=== PATIENT | female | born 1985 | race Caucasian/White ===

== ENCOUNTER 2017-11-17 10:30 | Emergency (ER) | payer OTHER ==
[2017-11-17 11:02] VITALS: BP 121/75
[2017-11-17] MEDS ORDERED: Morphine 2 MG/ML Syringe IVPUSH ONE (11:10)
[2017-11-17] MEDS ORDERED: Sodium Chloride 0.9% 10 ML Syringe FLUSH PRN (11:10)
--- NOTE | 2017-11-17 11:26 | EDM.PDOC ---
<Marsha Olvera - Last Filed: 11/17/17 11:10> ED HPI GENERAL MEDICAL PROBLEM - General Chief Complaint: Genitourinary Problem Stated Complaint: [id number] STAGE 2 KIDNEY DISEASE SHARP PAIN Time Seen by Provider: 11/17/17 11:10 Source of Information: Reports: Patient, RN, RN Notes Reviewed History Limitations: Reports: No Limitations - History of Present Illness INITIAL COMMENTS - FREE TEXT/NARRATIVE: Shelia is a 31 yo F who presents to the ED with a three day history of right flank pain. She reports that the pain has been progressively getting worse over the last 2 days. The pain is constant, sharp burning pain. She reports that she has tried ibuprofen and tylenol without relief. Denies abd pain, nausea or vomiting. She denies fever or dysuria. She reports that she has not been able to void the last two days despite drinking water. Location: Reports: Other (Right flank area) Quality: Reports: Ache, Sharp Severity: Severe Improves with: Reports: None Worsens with: Reports: None Associated Symptoms: Reports: Other (Unable to void) Right Flank Pain Score (Numeric/FACES): 10 - Related Data Allergies Allergy/AdvReac Type Severity Reaction Status Date / Time cephalexin [Cephalexin] Allergy Rash Verified 11/17/17 10:53 ibuprofen Allergy Cannot Verified 11/17/17 10:53 Remember Home Meds: Home Meds Acetaminophen [Tylenol] 975 mg PO ASDIRECTED PRN 11/17/17 [History] Losartan Potassium 25 mg PO DAILY 11/17/17 [History] Past Medical History HEENT History: Reports: None Cardiovascular History: Reports: None Respiratory History: Reports: None Gastrointestinal History: Reports: None Genitourinary History: Reports: Other (See Below) Other Genitourinary History: stage 2 kidney disease 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 Neurological History: Reports: None Psychiatric History: Reports: None Endocrine/Metabolic History: Reports: None Hematologic History: Reports: None Immunologic History: Reports: None Oncologic (Cancer) History: Reports: None Other Oncologic History: SLE lupus Dermatologic History: Reports: None - Past Surgical History Female Surgical History: Reports: Breast Reduction, Section Musculoskeletal Surgical History: Reports: Other (See Below) Other Musculoskeletal Surgeries/Procedures:: acl surgury Social & Family History - Tobacco Use Smoking Status *Q: Never Smoker Second Hand Smoke Exposure: No - Caffeine Use Caffeine Use: Reports: None - Alcohol Use Days Per Week of Alcohol Use: 0 - Recreational Drug Use Recreational Drug Use: No ED ROS GENERAL - Review of Systems Review Of Systems: ROS reveals no pertinent complaints other than HPI. ED EXAM, RENAL/ - Physical Exam Exam: See Below Exam Limited By: No Limitations General Appearance: Alert, WD/WN, No Apparent Distress Eye Exam: Bilateral Eye: PERRL Ears: Normal External Exam, Normal Canal, Hearing Grossly Normal, Normal TMs Nose: Normal Inspection, Normal Mucosa, No Blood Throat/Mouth: Normal Inspection, Normal Lips, Normal Teeth, Normal Gums, Normal Oropharynx, Normal Voice, No Airway Compromise Head: Atraumatic, Normocephalic Neck: Normal Inspection, Supple, Non-Tender, Full Range of Motion Respiratory/Chest: No Respiratory Distress, Lungs Clear, Normal Breath Sounds, No Accessory Muscle Use, Chest Non-Tender Cardiovascular: Normal Peripheral Pulses, Regular Rate, Rhythm, No Edema, No Gallop, No JVD, No Murmur, No Rub GI/Abdominal: Normal Bowel Sounds, Soft, Non-Tender, No Organomegaly, No Distention, No Abnormal Bruit, No Mass (Female) Exam: Deferred Rectal (Female) Exam: Deferred Back Exam: Normal Inspection, Full Range of Motion, CVA Tenderness (R) Extremities: Normal Inspection, Normal Range of Motion, Non-Tender, Normal Capillary Refill, No Pedal Edema Neurological: Alert, Oriented, CN II-XII Intact, Normal Cognition, Normal Gait, Normal Reflexes, No Motor/Sensory Deficits Psychiatric: Normal Affect, Normal Mood Skin Exam: Warm, Dry, Intact, Normal Color, No Rash Lymphatic: No Adenopathy Course - Vital Signs Last Recorded V/S: Last Vital Signs Temp 97.4 F 11/17/17 10:48 Pulse 66 11/17/17 11:01 Resp 16 11/17/17 10:48 BP 121/75 11/17/17 11:01 Pulse Ox 100 11/17/17 11:01 - Orders/Labs/Meds Orders: Active Orders 24 hr Category Date Time Status Insert Felder Catheter [Insert Urinary Catheter] [OM.PC] Care 11/17/17 12:15 Ordered Q24H Peripheral IV Care [RC] . DIRECTED Care 11/17/17 11:11 Active Urinary Catheter Assessment [RC] ASDIRECTED Care 11/17/17 12:06 Active Sodium Chloride 0.9% [Saline Flush] Med 11/17/17 11:10 Active 10 ml FLUSH ASDIRECTED PRN Peripheral IV Insertion Adult [OM.PC] Stat Oth 11/17/17 11:10 Ordered Medication Orders Sodium Chloride (Saline Flush) 10 ml FLUSH ASDIRECTED PRN PRN Reason: Keep Vein Open Last Admin: 11/17/17 11:16 Dose: 10 ml Labs: Laboratory Tests 11/17/17 11/17/17 11/17/17 Range/Units 11:20 11:20 14:56 WBC 7.5 (5.0-10.0) 10^3/uL RBC 5.11 (4.2-5.4) 10^6/uL Hgb 14.0 (12.0-16.0) g/dL Hct 41.3 (37.0-47.0) % MCV 80.8 (80-100) fL MCH 27.4 (27.0-34.0) pg MCHC 33.9 (33.0-35.0) g/dL Plt Count 342 (150-450) 10^3/uL Neut % (Auto) 65.7 (42.2-75.2) % Lymph % (Auto) 25.7 (20.5-50.1) % [place] % (Auto) 7.1 (2-8) % Eos % (Auto) 0.8 L (1.0-3.0) % Baso % (Auto) 0.7 (0.0-1.0) % Sodium 137 (135-145) mmol/L Potassium 3.7 (3.6-5.0) mmol/L Chloride 104 (101-111) mmol/L Carbon Dioxide 24.0 (21.0-31.0) mmol/L Anion Gap 12.7 BUN 10 (7-18) mg/dL Creatinine 0.8 (0.6-1.3) mg/dL Est Cr Clr Drug Dosing 87.99 mL/min Estimated GFR (MDRD) > 60 BUN/Creatinine Ratio 12.50 Glucose 92 (74-105) mg/dL Calcium 9.4 (8.4-10.2) mg/dl Total Bilirubin 0.8 (0.2-1.0) mg/dL AST 18 (10-42) IU/L ALT 18 (10-60) IU/L Alkaline Phosphatase 55 (42-121) IU/L B-Natriuretic Peptide < 5 (0-100) pg/ml Total Protein 7.4 (6.7-8.2) g/dl Albumin 4.5 (3.2-5.5) g/dl Globulin 2.9 Albumin/Globulin Ratio 1.55 Urine Color Yellow (YELLOW) Urine Appearance Slightly cloudy (CLEAR) Urine pH 5.5 (5.0-9.0) Ur Specific [place] <= 1.005 (1.005-1.030) Urine Protein 30 H (NEGATIVE) Urine Glucose (UA) Negative (NEGATIVE) Urine Ketones Trace H (NEGATIVE) Urine Occult Blood Trace-lysed H (NEGATIVE) Urine Nitrite Negative (NEGATIVE) Urine Bilirubin Negative (NEGATIVE) Urine Urobilinogen 0.2 (0.2-1.0) mg/dL Ur Leukocyte Esterase Negative (NEGATIVE) Urine RBC 0-5 /HPF Urine WBC 0-5 (0-5/HPF) /HPF Ur Epithelial Cells Few /HPF Urine Bacteria Few (0-FEW/HPF) /HPF Urine Mucus Rare /LPF Urine Opiates Screen (NEGATIVE) Ur Oxycodone Screen (NEGATIVE) Urine Methadone Screen (NEGATIVE) Ur Barbiturates Screen (NEGATIVE) U Tricyclic Antidepress (NEGATIVE) Ur Phencyclidine Scrn (NEGATIVE) Ur Amphetamine Screen (NEGATIVE) U Methamphetamines Scrn (NEGATIVE) Urine MDMA Screen (NEGATIVE) U Benzodiazepines Scrn (NEGATIVE) Urine Cocaine Screen (NEGATIVE) U Marijuana (THC) Screen (NEGATIVE) 11/17/17 Range/Units 14:56 WBC (5.0-10.0) 10^3/uL RBC (4.2-5.4) 10^6/uL Hgb (12.0-16.0) g/dL Hct (37.0-47.0) % MCV (80-100) fL MCH (27.0-34.0) pg MCHC (33.0-35.0) g/dL Plt Count (150-450) 10^3/uL Neut % (Auto) (42.2-75.2) % Lymph % (Auto) (20.5-50.1) % [place] % (Auto) (2-8) % Eos % (Auto) (1.0-3.0) % Baso % (Auto) (0.0-1.0) % Sodium (135-145) mmol/L Potassium (3.6-5.0) mmol/L Chloride (101-111) mmol/L Carbon Dioxide (21.0-31.0) mmol/L Anion Gap BUN (7-18) mg/dL Creatinine (0.6-1.3) mg/dL Est Cr Clr Drug Dosing mL/min Estimated GFR (MDRD) BUN/Creatinine Ratio Glucose (74-105) mg/dL Calcium (8.4-10.2) mg/dl Total Bilirubin (0.2-1.0) mg/dL AST (10-42) IU/L ALT (10-60) IU/L Alkaline Phosphatase (42-121) IU/L B-Natriuretic Peptide (0-100) pg/ml Total Protein (6.7-8.2) g/dl Albumin (3.2-5.5) g/dl Globulin Albumin/Globulin Ratio Urine Color (YELLOW) Urine Appearance (CLEAR) Urine pH (5.0-9.0) Ur Specific [place] (1.005-1.030) Urine Protein (NEGATIVE) Urine Glucose (UA) (NEGATIVE) Urine Ketones (NEGATIVE) Urine Occult Blood (NEGATIVE) Urine Nitrite (NEGATIVE) Urine Bilirubin (NEGATIVE) Urine Urobilinogen (0.2-1.0) mg/dL Ur Leukocyte Esterase (NEGATIVE) Urine RBC /HPF Urine WBC (0-5/HPF) /HPF Ur Epithelial Cells /HPF Urine Bacteria (0-FEW/HPF) /HPF Urine Mucus /LPF Urine Opiates Screen Positive H (NEGATIVE) Ur Oxycodone Screen Negative (NEGATIVE) Urine Methadone Screen Negative (NEGATIVE) Ur Barbiturates Screen Negative (NEGATIVE) U Tricyclic Antidepress Negative (NEGATIVE) Ur Phencyclidine Scrn Negative (NEGATIVE) Ur Amphetamine Screen Negative (NEGATIVE) U Methamphetamines Scrn Negative (NEGATIVE) Urine MDMA Screen Negative (NEGATIVE) U Benzodiazepines Scrn Negative (NEGATIVE) Urine Cocaine Screen Negative (NEGATIVE) U Marijuana (THC) Screen Negative (NEGATIVE) Meds: Medications Generic Name Dose Route Start Last Admin Trade Name Freq PRN Reason Stop Dose Admin Sodium Chloride 10 ml 11/17/17 11:10 11/17/17 11:16 Saline Flush FLUSH 10 ml ASDIRECTED PRN Administration Keep Vein Open Discontinued Medications Generic Name Dose Route Start Last Admin Trade Name Mark PRN Reason Stop Dose Admin Hydromorphone HCl 0.5 mg 11/17/17 13:33 11/17/17 13:53 Dilaudid IVPUSH 11/17/17 13:34 0.5 mg ONETIME ONE Administration Hydromorphone HCl 0.5 mg 11/17/17 13:44 11/17/17 14:37 Dilaudid IVPUSH 11/17/17 13:45 Not Given ONETIME ONE Sodium Chloride 1,000 mls @ 999 mls/hr 11/17/17 13:34 11/17/17 13:52 Normal Saline IV 11/17/17 14:34 999 mls/hr .BOLUS ONE Administration Sodium Chloride 1,000 mls @ 999 mls/hr 11/17/17 13:43 11/17/17 14:37 Normal Saline IV 11/17/17 14:43 Not Given .BOLUS ONE Iopamidol 75 ml 11/17/17 12:32 11/17/17 12:50 Isovue-300 (61%) IVPUSH 11/17/17 12:33 75 ml ONETIME ONE Administration Morphine Sulfate 2 mg 11/17/17 11:10 11/17/17 11:15 Morphine IVPUSH 11/17/17 11:11 2 mg ONETIME ONE Administration Departure - Departure Disposition: Home, Self-Care 01 Clinical Impression: Right flank pain, Kidney stone - Discharge Information Instructions: Renal Colic, [id number], Flank Pain, [id number], Kidney Stones, [id number] Forms: ED Department Discharge Additional Instructions: RX: Tramadol/Acetaminophen Drink plenty of water Follow up with your primary care facility - My Orders Last 24 Hours: My Active Orders 11/17/17 11:10 Sodium Chloride 0.9% [Saline Flush] 10 ml FLUSH ASDIRECTED PRN Peripheral IV Insertion Adult [OM.PC] Stat 11/17/17 11:11 Peripheral IV Care [RC] . DIRECTED 11/17/17 12:06 Urinary Catheter Assessment [RC] ASDIRECTED 11/17/17 12:15 Insert Felder Catheter [Insert Urinary Catheter] [OM.PC] Q24H - Assessment/Plan Last 24 Hours: My Active Orders 11/17/17 11:10 Sodium Chloride 0.9% [Saline Flush] 10 ml FLUSH ASDIRECTED PRN Peripheral IV Insertion Adult [OM.PC] Stat 11/17/17 11:11 Peripheral IV Care [RC] . DIRECTED 11/17/17 12:06 Urinary Catheter Assessment [RC] ASDIRECTED 11/17/17 12:15 Insert Felder Catheter [Insert Urinary Catheter] [OM.PC] Q24H <Amie Kapoor - Last Filed: 11/17/17 16:04> Course - Radiology Interpretation Free Text/Narrative:: CT Abdomen/Pelvis with Contrast: 1. Solitary tiny calcification mid pole right kidney without signs of obstructive uropathy this or the contralateral left kidney. Symmetrically distended normal appearing urinary bladder. No sign of extravesicular pelvic mass lesions or lymphadenopathy. 2. Gallbladder distended right upper quadrant. No gallstones. Liver, stomach, spleen, pancreas and adrenal glands negative. Diverticula descending left colon without associated signs of inflammation, i.e. , diverticulosis. See Rad report Departure - Departure Time of Disposition: 16:03 Condition: Fair
[2017-11-17 11:51] LABS: CHLORIDE,CL 104 mmol/L (101-111); SODIUM,NA 137 mmol/L (135-145)
[2017-11-17] MEDS ORDERED: Iopamidol 612 MG/ML 75 ML Bottle IVPUSH ONE (12:32)
[2017-11-17] MEDS ORDERED: HYDROmorphone 0.5 MG/0.5 ML Syringe IVPUSH ONE ×2 (13:33→13:44)
[2017-11-17] MEDS ORDERED: Sodium Chloride 0.9% 1,000 ML IV ONE ×2 (13:34→13:43)
--- NOTE | 2017-11-17 14:20 | CT ---
CLINICAL HISTORY: 31-year-old female who "has not urinated in 2 days" complaining of sharp pain right flank. Previous hysterectomy and right oophorectomy this patient with "stage II" kidney disease. Ser um creatinine 0.8. SCAN TECHNIQUE: Volume acquisition of data from the abdomen and pelvis obtained without oral contrast but during/after the intravenous infusion 75 cc nonionic Isovue contrast (2 cc/sec via injector) whi le the patient was lying supine on the Siemens multislice scanner [place], [place]. All data archived in the PACS system for storage, reformatting and study. INTERPRETATION: Solitary tiny calculus mid pole right kidney (no obstruction). Diverticulosis left co branden. Otherwise Negative exam. 1. Normal reniform size, axis and configuration. No sign of renal cortical cystic or solid mass lesio n. Solitary tiny calcification mid pole right kidney without signs of obstructive uropathy this or th e contralateral left kidney. Symmetrically distended normal appearing urinary bladder. No sign of ext ravesicular pelvic mass lesions or lymphadenopathy. Small midline uterus. 2. Gallbladder distended right upper quadrant. No gallstones. Liver, stomach, spleen, pancreas and ad renal glands negative.. 3. Normal aortoiliac vessels without sign of aneurysm or dissection. Lumbar spine unremarkable. Lung bases are clear. 4. No abdominal mass lesion, retroperitoneal lymphadenopathy, inflammatory "dirty" peritoneal fat, si gns of mechanical bowel obstruction, ascites or free intraperitoneal air. 5. Diverticula descending left colon without associated signs of inflammation, i.e., diverticulosis.
== END 2017-11-17 16:12 | disposition home or self-care (01) ==
LOC: DL.ED 10:30
DX: N20.0 Calculus of kidney (principal); N18.2 Chronic kidney disease, stage 2 (mild); Z88.1 Allergy status to other antibiotic agents; Z88.6 Allergy status to analgesic agent; Z79.899 Other long term (current) drug therapy; Z90.710 Acquired absence of both cervix and uterus
CPT/HCPCS: 36415; 74177; 80053; 80305; 81001; 83880; 85025; 96361; 96374; 96375; 99284; J1170; J2270; J7030; J7050; Q9967

== ENCOUNTER 2018-01-05 21:38 | Emergency (ER) | payer OTHER ==
[2018-01-05] MEDS ORDERED: Ondansetron 4 MG Tab.DIS PO ONE (22:06)
[2018-01-05] MEDS ORDERED: Sodium Chloride 0.9% 1,000 ML IV ONE (22:06)
[2018-01-05 22:46] LABS: ANION GAP 10.8; CHLORIDE,CL 104 mmol/L (101-111); SODIUM,NA 136 mmol/L (135-145)
[2018-01-05] MEDS ORDERED: Morphine 10 MG/ML Syringe IVPUSH ONE (23:35)
[2018-01-05] MEDS ORDERED: HYDROmorphone 0.5 MG/0.5 ML Syringe IVPUSH ONE (23:51)
[2018-01-06 00:04] VITALS: BP 100/87
[2018-01-06] MEDS ORDERED: fentaNYL 100 MCG/2 ML SDV IVPUSH ONE ×2 (00:29→01:01)
[2018-01-06] MEDS ORDERED: Promethazine 25 MG/ML SDV IM ONE (01:01)
[2018-01-06] MEDS ORDERED: Sodium Chloride 0.9% 1,000 ML IV ONE (01:36)
[2018-01-06] MEDS ORDERED: Iopamidol 612 MG/ML 75 ML Bottle IVPUSH ONE (01:43)
[2018-01-06] MEDS ORDERED: Ketorolac 30 MG/ML SDV IM ONE (02:54)
--- NOTE | 2018-01-06 02:58 | EDM.PDOC ---
ED HPI GENERAL MEDICAL PROBLEM - General Chief Complaint: Flank Pain Stated Complaint: [id number] RT KIDNEY PAIN STAGE 2 KIDNEY DISEASE Time Seen by Provider: 01/05/18 21:45 Source of Information: Reports: Patient History Limitations: Reports: No Limitations - History of Present Illness INITIAL COMMENTS - FREE TEXT/NARRATIVE: ED with c/o right flank pain, reports onset around 130 then improved some with tylonol now worse unable to find position of comfort, sharp constant. 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 Right Flank Pain Score (Numeric/FACES): 0 - Related Data Allergies Allergy/AdvReac Type Severity Reaction Status Date / Time cephalexin [Cephalexin] Allergy Rash Verified 01/05/18 21:53 ibuprofen Allergy Cannot Verified 01/05/18 21:53 Remember Home Meds: Home Meds Acetaminophen [Tylenol] 975 mg PO ASDIRECTED PRN 11/17/17 [History] Losartan Potassium 25 mg PO DAILY 11/17/17 [History] Sertraline [Zoloft] 25 mg PO DAILY 01/05/18 [History] Past Medical History HEENT History: Reports: None Cardiovascular History: Reports: None Respiratory History: Reports: None Gastrointestinal History: Reports: None Genitourinary History: Reports: Other (See Below) Other Genitourinary History: stage 2 kidney disease 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 History: Reports: None Psychiatric History: Reports: None Endocrine/Metabolic History: Reports: None Hematologic History: Reports: None Immunologic History: Reports: None Oncologic (Cancer) History: Reports: None Other Oncologic History: SLE lupus Dermatologic History: Reports: None - Past Surgical History Female Surgical History: Reports: Breast Reduction, Section Musculoskeletal Surgical History: Reports: Other (See Below) Other Musculoskeletal Surgeries/Procedures:: acl surgury Social & Family History - Tobacco Use Smoking Status *Q: Never Smoker - Caffeine Use Caffeine Use: Reports: None - Recreational Drug Use Recreational Drug Use: No ED ROS GENERAL - Review of Systems Review Of Systems: ROS reveals no pertinent complaints other than HPI. ED EXAM, GI/ABD - Physical Exam Exam: See Below Exam Limited By: No Limitations General Appearance: Alert, Mild Distress, Obese Eyes: Bilateral: EOMI Ears: Normal External Exam Nose: Normal Inspection Throat/Mouth: Normal Inspection Head: Atraumatic, Normocephalic Neck: Normal Inspection Respiratory/Chest: No Respiratory Distress, Lungs Clear, Normal Breath Sounds Cardiovascular: Normal Peripheral Pulses GI/Abdominal Exam: Normal Bowel Sounds Back Exam: CVA Tenderness (L), CVA Tenderness (R) Extremities: Normal Inspection Neurological: Alert, Oriented, Normal Cognition Psychiatric: Normal Affect, Normal Mood Skin Exam: Warm, Dry, Intact, No Rash Course - Vital Signs Last Recorded V/S: Last Vital Signs Temp 96.7 F 01/06/18 00:01 Pulse 60 01/06/18 00:01 Resp 19 01/06/18 00:01 BP 100/87 01/06/18 00:01 Pulse Ox 100 01/06/18 00:01 - Orders/Labs/Meds Labs: Laboratory Tests 01/05/18 01/05/18 01/05/18 Range/Units 21:42 21:42 22:10 WBC 9.3 (5.0-10.0) 10^3/uL RBC 5.12 (4.2-5.4) 10^6/uL Hgb 14.0 (12.0-16.0) g/dL Hct 40.9 (37.0-47.0) % MCV 79.9 L (80-100) fL MCH 27.3 (27.0-34.0) pg MCHC 34.2 (33.0-35.0) g/dL Plt Count 286 (150-450) 10^3/uL Neut % (Auto) 59.5 (42.2-75.2) % Lymph % (Auto) 30.6 (20.5-50.1) % [place] % (Auto) 8.0 (2-8) % Eos % (Auto) 1.5 (1.0-3.0) % Baso % (Auto) 0.4 (0.0-1.0) % Sodium (135-145) mmol/L Potassium (3.6-5.0) mmol/L Chloride (101-111) mmol/L Carbon Dioxide (21.0-31.0) mmol/L Anion Gap BUN (7-18) mg/dL Creatinine (0.6-1.3) mg/dL Est Cr Clr Drug Dosing mL/min Estimated GFR (MDRD) BUN/Creatinine Ratio Glucose (74-105) mg/dL Calcium (8.4-10.2) mg/dl Total Bilirubin (0.2-1.0) mg/dL AST (10-42) IU/L ALT (10-60) IU/L Alkaline Phosphatase (42-121) IU/L C-Reactive Protein (0.0-1.3) mg/dL Total Protein (6.7-8.2) g/dl Albumin (3.2-5.5) g/dl Globulin Albumin/Globulin Ratio Amylase (28-100) U/L Lipase (22-51) U/L Urine Color Yellow (YELLOW) Urine Appearance Clear (CLEAR) Urine pH 5.5 (5.0-9.0) Ur Specific [place] 1.025 (1.005-1.030) Urine Protein Negative (NEGATIVE) Urine Glucose (UA) Negative (NEGATIVE) Urine Ketones Negative (NEGATIVE) Urine Occult Blood Negative (NEGATIVE) Urine Nitrite Negative (NEGATIVE) Urine Bilirubin Negative (NEGATIVE) Urine Urobilinogen 0.2 (0.2-1.0) mg/dL Ur Leukocyte Esterase Negative (NEGATIVE) Urine RBC Not seen /HPF Urine WBC 0-5 (0-5/HPF) /HPF Ur Epithelial Cells Many H /HPF Urine Bacteria Many H (0-FEW/HPF) /HPF Urine Other See note Urine HCG, Qual Urine Opiates Screen Negative (NEGATIVE) Ur Oxycodone Screen Negative (NEGATIVE) Urine Methadone Screen Negative (NEGATIVE) Ur Barbiturates Screen Negative (NEGATIVE) U Tricyclic Antidepress Negative (NEGATIVE) Ur Phencyclidine Scrn Negative (NEGATIVE) Ur Amphetamine Screen Negative (NEGATIVE) U Methamphetamines Scrn Negative (NEGATIVE) Urine MDMA Screen Negative (NEGATIVE) U Benzodiazepines Scrn Negative (NEGATIVE) Urine Cocaine Screen Negative (NEGATIVE) U Marijuana (THC) Screen Negative (NEGATIVE) 01/05/18 01/05/18 01/06/18 Range/Units 22:10 22:10 00:00 WBC (5.0-10.0) 10^3/uL RBC (4.2-5.4) 10^6/uL Hgb (12.0-16.0) g/dL Hct (37.0-47.0) % MCV (80-100) fL MCH (27.0-34.0) pg MCHC (33.0-35.0) g/dL Plt Count (150-450) 10^3/uL Neut % (Auto) (42.2-75.2) % Lymph % (Auto) (20.5-50.1) % [place] % (Auto) (2-8) % Eos % (Auto) (1.0-3.0) % Baso % (Auto) (0.0-1.0) % Sodium 136 (135-145) mmol/L Potassium 3.8 (3.6-5.0) mmol/L Chloride 104 (101-111) mmol/L Carbon Dioxide 25.0 (21.0-31.0) mmol/L Anion Gap 10.8 BUN 10 (7-18) mg/dL Creatinine 0.8 (0.6-1.3) mg/dL Est Cr Clr Drug Dosing 90.84 mL/min Estimated GFR (MDRD) > 60 BUN/Creatinine Ratio 12.50 Glucose 75 (74-105) mg/dL Calcium 9.5 (8.4-10.2) mg/dl Total Bilirubin 0.4 (0.2-1.0) mg/dL AST 17 (10-42) IU/L ALT 20 (10-60) IU/L Alkaline Phosphatase 48 (42-121) IU/L C-Reactive Protein < 0.5 (0.0-1.3) mg/dL Total Protein 6.8 (6.7-8.2) g/dl Albumin 4.3 (3.2-5.5) g/dl Globulin 2.5 Albumin/Globulin Ratio 1.72 Amylase 77 (28-100) U/L Lipase 32 (22-51) U/L Urine Color (YELLOW) Urine Appearance (CLEAR) Urine pH (5.0-9.0) Ur Specific [place] (1.005-1.030) Urine Protein (NEGATIVE) Urine Glucose (UA) (NEGATIVE) Urine Ketones (NEGATIVE) Urine Occult Blood (NEGATIVE) Urine Nitrite (NEGATIVE) Urine Bilirubin (NEGATIVE) Urine Urobilinogen (0.2-1.0) mg/dL Ur Leukocyte Esterase (NEGATIVE) Urine RBC /HPF Urine WBC (0-5/HPF) /HPF Ur Epithelial Cells /HPF Urine Bacteria (0-FEW/HPF) /HPF Urine Other Urine HCG, Qual Negative Urine Opiates Screen (NEGATIVE) Ur Oxycodone Screen (NEGATIVE) Urine Methadone Screen (NEGATIVE) Ur Barbiturates Screen (NEGATIVE) U Tricyclic Antidepress (NEGATIVE) Ur Phencyclidine Scrn (NEGATIVE) Ur Amphetamine Screen (NEGATIVE) U Methamphetamines Scrn (NEGATIVE) Urine MDMA Screen (NEGATIVE) U Benzodiazepines Scrn (NEGATIVE) Urine Cocaine Screen (NEGATIVE) U Marijuana (THC) Screen (NEGATIVE) Meds: Medications Discontinued Medications Generic Name Dose Route Start Last Admin Trade Name Dillonq PRN Reason Stop Dose Admin Fentanyl 50 mcg 01/06/18 00:29 01/06/18 00:38 Sublimaze IVPUSH 01/06/18 00:30 50 mcg ONETIME ONE Administration Fentanyl 50 mcg 01/06/18 01:01 01/06/18 01:25 Sublimaze IVPUSH 01/06/18 01:02 50 mcg ONETIME ONE Administration Hydromorphone HCl 0.5 mg 01/05/18 23:51 01/05/18 23:56 Dilaudid IVPUSH 01/05/18 23:52 0.5 mg ONETIME ONE Administration Sodium Chloride 1,000 mls @ 999 mls/hr 01/05/18 22:06 01/05/18 23:02 Normal Saline IV 01/05/18 23:06 999 mls/hr .BOLUS ONE Administration Sodium Chloride 1,000 mls @ 999 mls/hr 01/06/18 01:36 01/06/18 02:23 Normal Saline IV 01/06/18 02:36 999 mls/hr .BOLUS ONE Administration Iopamidol 75 ml 01/06/18 01:43 01/06/18 02:01 Isovue-300 (61%) IVPUSH 01/06/18 01:44 75 ml ONETIME ONE Administration Ketorolac Tromethamine 15 mg 01/06/18 02:54 01/06/18 03:01 Toradol IM 01/06/18 02:55 15 mg ONETIME ONE Administration Morphine Sulfate 4 mg 01/05/18 23:35 01/05/18 23:55 Morphine IVPUSH 01/05/18 23:36 Not Given ONETIME ONE Ondansetron HCl 4 mg 01/05/18 22:06 01/05/18 23:01 Zofran Odt PO 01/05/18 22:07 4 mg ONETIME ONE Administration Promethazine HCl 25 mg 01/06/18 01:01 01/06/18 01:21 Phenergan IM 01/06/18 01:02 25 mg ONETIME ONE Administration - Radiology Interpretation Free Text/Narrative:: 2mm stone right pole of kidney non obstructing. (seen on previous CT' onr year ago and has not moved) - Re-Assessments/Exams Free Text/Narrative Re-Assessment/Exam: 01/07/18 15:34 minimal improvement in reported pain with medication. Patient drowsy, not appearing uncomfortable . Patient has reported to nurse, that she is in process of going through divorce. Patient has called multiple times and has had RN call also as now "phone ". Departure - Departure Time of Disposition: 02:55 Disposition: Home, Self-Care 01 Condition: Fair Clinical Impression: Right flank pain - Discharge Information Instructions: Flank Pain, Adult, [id number] Referrals: Cinthia Bergeron NP [Primary Care Provider] - Forms: ED Department Discharge Additional Instructions: increase fluid intake clinic follow up as needed if not improving
== END 2018-01-06 03:09 | disposition home or self-care (01) ==
LOC: DL.ED 21:38
DX: R10.9 Unspecified abdominal pain (principal); N18.2 Chronic kidney disease, stage 2 (mild); Z88.1 Allergy status to other antibiotic agents; Z88.6 Allergy status to analgesic agent; Z79.899 Other long term (current) drug therapy
CPT/HCPCS: 36415; 74178; 80053; 80305; 81001; 81025; 82150; 83690; 85025; 86140; 96361; 96372; 96374; 96375; 96376; 99284; A9270; J1170; J1885; J2550; J3010; J7030; Q9967

== ENCOUNTER 2018-04-08 21:02 | Emergency (ER) | payer OTHER ==
[2018-04-08 22:08] VITALS: BP 137/85
[2018-04-08] MEDS ORDERED: Ondansetron 4 MG/2 ML SDV IV ONE (22:31)
[2018-04-08] MEDS ORDERED: Morphine 2 MG/ML Syringe IVPUSH ONE (22:31)
[2018-04-08 22:52] LABS: ANION GAP 14.7; CHLORIDE,CL 104 mmol/L (101-111); SODIUM,NA 138 mmol/L (135-145)
[2018-04-08] MEDS ORDERED: Acetaminophen/HYDROcodone 325-10 MG Tab PO ONE (23:45)
[2018-04-08] MEDS ORDERED: Amoxicillin 500 MG Cap PO ONE (23:45)
--- NOTE | 2018-04-08 23:47 | EDM.PDOC ---
ED HPI GENERAL MEDICAL PROBLEM - General Chief Complaint: Flank Pain Stated Complaint: FEELING SICK [id number] Time Seen by Provider: 04/08/18 23:41 Source of Information: Reports: Patient History Limitations: Reports: No Limitations - History of Present Illness INITIAL COMMENTS - FREE TEXT/NARRATIVE: c/o 1 week h/o right flank pain going down to front. had same before and Dx with kidney infection. felt worse tonight and been N/V. denies dysuria Treatments [employer]: Reports: Acetaminophen Right Flank Pain Score (Numeric/FACES): 10 - Related Data Allergies Allergy/AdvReac Type Severity Reaction Status Date / Time cephalexin [Cephalexin] Allergy Rash Verified 04/08/18 22:08 ibuprofen Allergy Cannot Verified 04/08/18 22:08 Remember Home Meds: Home Meds Acetaminophen [Tylenol] 975 mg PO ASDIRECTED PRN 11/17/17 [History] Losartan Potassium 25 mg PO DAILY 11/17/17 [History] Sertraline [Zoloft] 25 mg PO DAILY 01/05/18 [History] Past Medical History HEENT History: Reports: None Cardiovascular History: Reports: None Respiratory History: Reports: None Gastrointestinal History: Reports: None Genitourinary History: Reports: Other (See Below) Other Genitourinary History: stage 2 kidney disease 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 Neurological History: Reports: None Psychiatric History: Reports: None Endocrine/Metabolic History: Reports: None Hematologic History: Reports: None Immunologic History: Reports: None Oncologic (Cancer) History: Reports: None Other Oncologic History: SLE lupus Dermatologic History: Reports: None - Past Surgical History Female Surgical History: Reports: Breast Reduction, Section Musculoskeletal Surgical History: Reports: Other (See Below) Other Musculoskeletal Surgeries/Procedures:: acl surgury Social & Family History - Tobacco Use Smoking Status *Q: Never Smoker - Caffeine Use Caffeine Use: Reports: None - Recreational Drug Use Recreational Drug Use: No ED ROS GENERAL - Review of Systems Review Of Systems: ROS reveals no pertinent complaints other than HPI. ED EXAM, RENAL/ - Physical Exam Exam: See Below Exam Limited By: No Limitations General Appearance: Alert, WD/WN, Mild Distress, Other (crying) Ears: Hearing Grossly Normal Throat/Mouth: Normal Voice, No Airway Compromise Head: Atraumatic Neck: Non-Tender, Full Range of Motion Respiratory/Chest: No Respiratory Distress Cardiovascular: Regular Rate, Rhythm GI/Abdominal: Soft, Non-Tender Back Exam: CVA Tenderness (R) Neurological: Alert, Oriented, Normal Cognition, Normal Gait, No Motor/Sensory Deficits Psychiatric: Tearful Skin Exam: Warm, Dry, Normal Color Lymphatic: No Adenopathy Course - Vital Signs Last Recorded V/S: Last Vital Signs Temp 36.6 C 04/08/18 21:55 Pulse 106 H 04/08/18 21:55 Resp 20 04/08/18 21:55 BP 137/85 04/08/18 21:55 Pulse Ox 98 04/08/18 21:55 - Orders/Labs/Meds Orders: Active Orders 24 hr Category Date Time Status CULTURE BLOOD [BC] Stat Lab 04/08/18 22:22 Received UA W/MICROSCOPIC [URIN] Stat Lab 04/08/18 22:13 Ordered Labs: Laboratory Tests 04/08/18 04/08/18 04/08/18 Range/Units 22:13 22:22 22:22 WBC 10.6 H (5.0-10.0) 10^3/uL RBC 5.12 (4.2-5.4) 10^6/uL Hgb 13.6 (12.0-16.0) g/dL Hct 41.1 (37.0-47.0) % MCV 80.3 (80-100) fL MCH 26.6 L (27.0-34.0) pg MCHC 33.1 (33.0-35.0) g/dL Plt Count 236 (150-450) 10^3/uL Neut % (Auto) 89.7 H (42.2-75.2) % Lymph % (Auto) 4.2 L (20.5-50.1) % [place] % (Auto) 5.8 (2-8) % Eos % (Auto) 0.1 L (1.0-3.0) % Baso % (Auto) 0.2 (0.0-1.0) % Sodium 138 (135-145) mmol/L Potassium 3.7 (3.6-5.0) mmol/L Chloride 104 (101-111) mmol/L Carbon Dioxide 23.0 (21.0-31.0) mmol/L Anion Gap 14.7 BUN 14 (7-18) mg/dL Creatinine 0.8 (0.6-1.3) mg/dL Est Cr Clr Drug Dosing 87.18 mL/min Estimated GFR (MDRD) > 60 BUN/Creatinine Ratio 17.50 Glucose 108 H (74-105) mg/dL Lactic Acid (0.5-2.2) mmol/L Calcium 9.5 (8.4-10.2) mg/dl Total Bilirubin 0.4 (0.2-1.0) mg/dL AST 27 (10-42) IU/L ALT 32 (10-60) IU/L Alkaline Phosphatase 68 (42-121) IU/L Total Protein 8.0 (6.7-8.2) g/dl Albumin 4.5 (3.2-5.5) g/dl Globulin 3.5 Albumin/Globulin Ratio 1.29 Urine Color Yellow (YELLOW) Urine Appearance Slightly cloudy (CLEAR) Urine pH 5.5 (5.0-9.0) Ur Specific [place] 1.010 (1.005-1.030) Urine Protein Negative (NEGATIVE) Urine Glucose (UA) Negative (NEGATIVE) Urine Ketones Negative (NEGATIVE) Urine Occult Blood Trace-lysed H (NEGATIVE) Urine Nitrite Negative (NEGATIVE) Urine Bilirubin Negative (NEGATIVE) Urine Urobilinogen 0.2 (0.2-1.0) mg/dL Ur Leukocyte Esterase Moderate H (NEGATIVE) Urine RBC 0-5 /HPF Urine WBC 10-20 H (0-5/HPF) /HPF Ur Epithelial Cells Few /HPF Urine Bacteria Moderate H (0-FEW/HPF) /HPF Urinalysis Comment 04/08/18 Range/Units 22:22 WBC (5.0-10.0) 10^3/uL RBC (4.2-5.4) 10^6/uL Hgb (12.0-16.0) g/dL Hct (37.0-47.0) % MCV (80-100) fL MCH (27.0-34.0) pg MCHC (33.0-35.0) g/dL Plt Count (150-450) 10^3/uL Neut % (Auto) (42.2-75.2) % Lymph % (Auto) (20.5-50.1) % [place] % (Auto) (2-8) % Eos % (Auto) (1.0-3.0) % Baso % (Auto) (0.0-1.0) % Sodium (135-145) mmol/L Potassium (3.6-5.0) mmol/L Chloride (101-111) mmol/L Carbon Dioxide (21.0-31.0) mmol/L Anion Gap BUN (7-18) mg/dL Creatinine (0.6-1.3) mg/dL Est Cr Clr Drug Dosing mL/min Estimated GFR (MDRD) BUN/Creatinine Ratio Glucose (74-105) mg/dL Lactic Acid 1.1 (0.5-2.2) mmol/L Calcium (8.4-10.2) mg/dl Total Bilirubin (0.2-1.0) mg/dL AST (10-42) IU/L ALT (10-60) IU/L Alkaline Phosphatase (42-121) IU/L Total Protein (6.7-8.2) g/dl Albumin (3.2-5.5) g/dl Globulin Albumin/Globulin Ratio Urine Color (YELLOW) Urine Appearance (CLEAR) Urine pH (5.0-9.0) Ur Specific [place] (1.005-1.030) Urine Protein (NEGATIVE) Urine Glucose (UA) (NEGATIVE) Urine Ketones (NEGATIVE) Urine Occult Blood (NEGATIVE) Urine Nitrite (NEGATIVE) Urine Bilirubin (NEGATIVE) Urine Urobilinogen (0.2-1.0) mg/dL Ur Leukocyte Esterase (NEGATIVE) Urine RBC /HPF Urine WBC (0-5/HPF) /HPF Ur Epithelial Cells /HPF Urine Bacteria (0-FEW/HPF) /HPF Urinalysis Comment Meds: Medications Discontinued Medications Generic Name Dose Route Start Last Admin Trade Name Mark PRN Reason Stop Dose Admin Hydrocodone Bitart/Acetaminophen 1 tab 04/08/18 23:45 04/08/18 23:52 [place] 325-10 Mg PO 04/08/18 23:46 1 tab ONETIME ONE Administration Amoxicillin 500 mg 04/08/18 23:45 04/08/18 23:52 Amoxil PO 04/08/18 23:46 500 mg ONETIME ONE Administration Morphine Sulfate 2 mg 04/08/18 22:31 04/08/18 22:42 Morphine IVPUSH 04/08/18 22:32 2 mg ONETIME ONE Administration Ondansetron HCl 4 mg 04/08/18 22:31 04/08/18 22:39 Zofran IV 04/08/18 22:32 4 mg ONETIME ONE Administration - Re-Assessments/Exams Free Text/Narrative Re-Assessment/Exam: 04/08/18 23:44 results discussed with pt in regards to legality of pain management in ER. Departure - Departure Time of Disposition: 23:55 Disposition: Home, Self-Care 01 Condition: Good Clinical Impression: UTI, Urinary tract infectious disease - Discharge Information Instructions: Urinary Tract Infection, Adult, [id number] Referrals: Cinthia Bergeron NP [Primary Care Provider] - Forms: ED Department Discharge Additional Instructions: 1) rest 2) drink lots of liquids 3) take tylenol or motrin as needed for fever 4) follow up at clinic rx givne; amox 250mg tid x 30 tramadol 50mg bid prn x 6 - My Orders Last 24 Hours: My Active Orders 04/08/18 22:13 UA W/MICROSCOPIC [URIN] Stat 04/08/18 22:22 CULTURE BLOOD [BC] Stat - Assessment/Plan Last 24 Hours: My Active Orders 04/08/18 22:13 UA W/MICROSCOPIC [URIN] Stat 04/08/18 22:22 CULTURE BLOOD [BC] Stat
== END 2018-04-08 23:55 | disposition home or self-care (01) ==
LOC: DL.ED 21:02
DX: N39.0 Urinary tract infection, site not specified (principal)
CPT/HCPCS: 36415; 80053; 81001; 83605; 85025; 87040; 96374; 96375; 99284; A9270; J2270; J2405

== ENCOUNTER 2018-05-11 21:56 | Emergency (ER) | payer OTHER ==
--- NOTE | 2018-05-11 22:27 | EDM.PDOC ---
ED HPI GENERAL MEDICAL PROBLEM - General Stated Complaint: SEVERE ABD PAIN Time Seen by Provider: 05/11/18 22:24 Source of Information: Reports: Patient History Limitations: Reports: No Limitations - History of Present Illness INITIAL COMMENTS - FREE TEXT/NARRATIVE: onset actually started last night but wasn't bad then woke up still there did eat lunch then slowly gotten worse, nauseous no V/D. Right Lower Abdomen Pain Score (Numeric/FACES): 8 - Related Data Allergies Allergy/AdvReac Type Severity Reaction Status Date / Time cephalexin [Cephalexin] Allergy Rash Verified 04/08/18 22:08 ibuprofen Allergy Cannot Verified 04/08/18 22:08 Remember Home Meds: Home Meds Acetaminophen [Tylenol] 975 mg PO ASDIRECTED PRN 11/17/17 [History] Losartan Potassium 25 mg PO DAILY 11/17/17 [History] Sertraline [Zoloft] 25 mg PO DAILY 01/05/18 [History] Past Medical History HEENT History: Reports: None Cardiovascular History: Reports: None Respiratory History: Reports: None Gastrointestinal History: Reports: None Genitourinary History: Reports: Other (See Below) Other Genitourinary History: stage 2 kidney disease 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 Neurological History: Reports: None Psychiatric History: Reports: None Endocrine/Metabolic History: Reports: None Hematologic History: Reports: None Immunologic History: Reports: None Oncologic (Cancer) History: Reports: None Other Oncologic History: SLE lupus Dermatologic History: Reports: None - Past Surgical History Female Surgical History: Reports: Breast Reduction, Section Musculoskeletal Surgical History: Reports: Other (See Below) Other Musculoskeletal Surgeries/Procedures:: acl surgury Social & Family History - Caffeine Use Caffeine Use: Reports: None ED ROS GENERAL - Review of Systems Review Of Systems: ROS reveals no pertinent complaints other than HPI. ED EXAM, GI/ABD - Physical Exam Exam: See Below Exam Limited By: No Limitations General Appearance: Alert, WD/WN, Mild Distress, Other (discomfort) Ears: Hearing Grossly Normal Throat/Mouth: Normal Voice, No Airway Compromise Head: Atraumatic Neck: Non-Tender, Full Range of Motion Respiratory/Chest: No Respiratory Distress Cardiovascular: Regular Rate, Rhythm GI/Abdominal Exam: Guarding, Tender, Other (RLQ> rigth side-RUQ). No: Distended , Rigid, Rebound Neurological: Alert, Oriented, Normal Cognition, No Motor/Sensory Deficits Psychiatric: Tearful Skin Exam: Warm, Dry, Normal Color Lymphatic: No Adenopathy Course - Vital Signs Last Recorded V/S: Last Vital Signs Temp 36.6 C 05/11/18 22:21 Pulse 69 05/11/18 22:21 Resp 17 05/11/18 22:21 BP 125/61 05/11/18 22:21 Pulse Ox 100 05/11/18 22:21 - Orders/Labs/Meds Orders: Active Orders 24 hr Category Date Time Status Acetaminophen/HYDROcodone [[place] 325-10 MG] Med 05/12/18 01:07 Once 1 tab PO ONETIME ONE Labs: Laboratory Tests 05/11/18 05/11/18 05/12/18 Range/Units 22:30 22:30 00:05 WBC 8.4 (5.0-10.0) 10^3/uL RBC 4.99 (4.2-5.4) 10^6/uL Hgb 13.5 (12.0-16.0) g/dL Hct 40.1 (37.0-47.0) % MCV 80.4 (80-100) fL MCH 27.1 (27.0-34.0) pg MCHC 33.7 (33.0-35.0) g/dL Plt Count 298 (150-450) 10^3/uL Neut % (Auto) 57.8 (42.2-75.2) % Lymph % (Auto) 32.7 (20.5-50.1) % [place] % (Auto) 6.9 (2-8) % Eos % (Auto) 2.1 (1.0-3.0) % Baso % (Auto) 0.5 (0.0-1.0) % Sodium 137 (135-145) mmol/L Potassium 3.5 L (3.6-5.0) mmol/L Chloride 104 (101-111) mmol/L Carbon Dioxide 25.0 (21.0-31.0) mmol/L Anion Gap 11.5 BUN 15 (7-18) mg/dL Creatinine 0.8 (0.6-1.3) mg/dL Est Cr Clr Drug Dosing 90.84 mL/min Estimated GFR (MDRD) > 60 BUN/Creatinine Ratio 18.75 Glucose 99 (74-105) mg/dL Calcium 9.1 (8.4-10.2) mg/dl Total Bilirubin 0.4 (0.2-1.0) mg/dL AST 17 (10-42) IU/L ALT 20 (10-60) IU/L Alkaline Phosphatase 48 (42-121) IU/L Total Protein 6.9 (6.7-8.2) g/dl Albumin 4.1 (3.2-5.5) g/dl Globulin 2.8 Albumin/Globulin Ratio 1.46 Amylase 84 (28-100) U/L Lipase 42 (22-51) U/L Urine Color Yellow (YELLOW) Urine Appearance Slightly cloudy (CLEAR) Urine pH 6.0 (5.0-9.0) Ur Specific [place] 1.025 (1.005-1.030) Urine Protein 30 H (NEGATIVE) Urine Glucose (UA) Negative (NEGATIVE) Urine Ketones Negative (NEGATIVE) Urine Occult Blood Negative (NEGATIVE) Urine Nitrite Negative (NEGATIVE) Urine Bilirubin Negative (NEGATIVE) Urine Urobilinogen 0.2 (0.2-1.0) mg/dL Ur Leukocyte Esterase Small H (NEGATIVE) Urine RBC Not seen /HPF Urine WBC 5-10 H (0-5/HPF) /HPF Ur Epithelial Cells Few /HPF Urine Bacteria Few (0-FEW/HPF) /HPF Urine Other See note Urine HCG, Qual 05/12/18 Range/Units 00:05 WBC (5.0-10.0) 10^3/uL RBC (4.2-5.4) 10^6/uL Hgb (12.0-16.0) g/dL Hct (37.0-47.0) % MCV (80-100) fL MCH (27.0-34.0) pg MCHC (33.0-35.0) g/dL Plt Count (150-450) 10^3/uL Neut % (Auto) (42.2-75.2) % Lymph % (Auto) (20.5-50.1) % [place] % (Auto) (2-8) % Eos % (Auto) (1.0-3.0) % Baso % (Auto) (0.0-1.0) % Sodium (135-145) mmol/L Potassium (3.6-5.0) mmol/L Chloride (101-111) mmol/L Carbon Dioxide (21.0-31.0) mmol/L Anion Gap BUN (7-18) mg/dL Creatinine (0.6-1.3) mg/dL Est Cr Clr Drug Dosing mL/min Estimated GFR (MDRD) BUN/Creatinine Ratio Glucose (74-105) mg/dL Calcium (8.4-10.2) mg/dl Total Bilirubin (0.2-1.0) mg/dL AST (10-42) IU/L ALT (10-60) IU/L Alkaline Phosphatase (42-121) IU/L Total Protein (6.7-8.2) g/dl Albumin (3.2-5.5) g/dl Globulin Albumin/Globulin Ratio Amylase (28-100) U/L Lipase (22-51) U/L Urine Color (YELLOW) Urine Appearance (CLEAR) Urine pH (5.0-9.0) Ur Specific [place] (1.005-1.030) Urine Protein (NEGATIVE) Urine Glucose (UA) (NEGATIVE) Urine Ketones (NEGATIVE) Urine Occult Blood (NEGATIVE) Urine Nitrite (NEGATIVE) Urine Bilirubin (NEGATIVE) Urine Urobilinogen (0.2-1.0) mg/dL Ur Leukocyte Esterase (NEGATIVE) Urine RBC /HPF Urine WBC (0-5/HPF) /HPF Ur Epithelial Cells /HPF Urine Bacteria (0-FEW/HPF) /HPF Urine Other Urine HCG, Qual Negative - Re-Assessments/Exams Free Text/Narrative Re-Assessment/Exam: 05/12/18 01:08 results discussed with pt. Departure - Departure Time of Disposition: 01:08 Disposition: Home, Self-Care 01 Condition: Good Clinical Impression: Abdominal pain Qualifiers: Abdominal location: epigastric Qualified Code(s): R10.13 - Epigastric pain - Discharge Information Instructions: Abdominal Pain, Adult, [id number] Forms: ED Department Discharge Additional Instructions: 1) see clinic or family doctor tomorrow for GALL BLADDER ULTRASOUND 2) avoid fatty oily fried spicy foods 3) recheck as needed - My Orders Last 24 Hours: My Active Orders 05/12/18 01:07 Acetaminophen/HYDROcodone [[place] 325-10 MG] 1 tab PO ONETIME ONE - Assessment/Plan Last 24 Hours: My Active Orders 05/12/18 01:07 Acetaminophen/HYDROcodone [[place] 325-10 MG] 1 tab PO ONETIME ONE
[2018-05-11 22:36] VITALS: BP 125/61
[2018-05-11 22:58] LABS: ANION GAP 11.5; CHLORIDE,CL 104 mmol/L (101-111); SODIUM,NA 137 mmol/L (135-145)
[2018-05-12] MEDS ORDERED: Acetaminophen/HYDROcodone 325-10 MG Tab PO ONE (01:07)
== END 2018-05-12 01:17 | disposition home or self-care (01) ==
LOC: DL.ED 21:56
DX: R10.13 Epigastric pain (principal); N18.2 Chronic kidney disease, stage 2 (mild); Z79.899 Other long term (current) drug therapy; Z88.6 Allergy status to analgesic agent; Z88.1 Allergy status to other antibiotic agents
CPT/HCPCS: 36415; 80053; 81001; 81025; 82150; 83690; 85025; 99284; A9270